=== PATIENT | female | born 1975 | race Caucasian/White ===

== ENCOUNTER → 2020-07-21 | Outpatient (CLI) | payer OTHER ==
[~2020-07-21] MED LIST: GADOTERATE 10 MMOL/20 ML VIAL ONE
== END | disposition home or self-care (01) ==
LOC: RAD 14:26
PROVIDERS: ATTEND Registered Nurse
DX: H90.5 Unspecified sensorineural hearing loss (principal)
CPT/HCPCS: 70553; A9575

== ENCOUNTER 2020-08-29 11:51 | Emergency (ER) | payer OTHER ==
[~2020-08-29] VITALS: Ht 165.1 cm; Wt 97.7 kg
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
[2020-08-29] MEDS ORDERED: MORPHINE SULFATE 4 MG/ML, 1ML ONE (12:18)
[2020-08-29] MEDS ORDERED: ONDANSETRON 2MG/ML, 2ML ONE ×3 (12:18→17:02)
[2020-08-29] MEDS ORDERED: ONDANSETRON 2MG/ML, 2ML IVPush ONE ×3 (12:30→17:30)
[2020-08-29] MEDS ORDERED: SODIUM CHLORIDE FLUSH 10ML SYR IVF ONE (12:30)
[2020-08-29] MEDS ORDERED: MORPHINE SULFATE 4 MG/ML, 1ML IVPush PRN (12:30)
[2020-08-29 12:40] LABS: BASOPHILS % (AUTO) 0 % (0-1); EOSINOPHILS % (AUTO) 0 % (1-7); LYMPHOCYTES % (AUTO) 5 % (22-44); MEAN CORPUSCULAR HGB CONC 34.4 g/dL (32.4-35.8); MEAN PLATELET VOLUME 9.4 fL (7.4-10.4); MONOCYTES % (AUTO) 6 % (2-9); NEUTROPHILS % (AUTO) 88 % (42-75); PLATELET COUNT 175 x10^3/uL (130-400); RED BLOOD COUNT 4.74 x10^6/uL (3.82-5.3); RED CELL DISTRIBUTION WIDTH 13.5 % (9.6-15.2)
[2020-08-29 12:46] LABS: MICROSCOPIC INDICATED
[2020-08-29 12:48] LABS: ALBUMIN 3.3 g/dL (3.4-5.0); ANION GAP 4 mmol/L (5-15); CALCIUM 8.4 mg/dL (8.5-10.1); CHLORIDE 109 mmol/L (98-107)
[2020-08-29 12:54] LABS: ALANINE AMINOTRANSFERASE 28 U/L (12-78); ALKALINE PHOSPHATASE 70 U/L (45-117); BILIRUBIN,TOTAL 0.6 mg/dL (0.2-1.0); CREATININE 0.65 mg/dL (0.55-1.02); TOTAL PROTEIN 6.9 g/dL (6.4-8.2)
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
[2020-08-29 13:14] LABS: MD SCAN
[2020-08-29] MEDS ORDERED: KETOROLAC 30 MG/1 ML IVPush ONE (13:30)
[2020-08-29] MEDS ORDERED: MECLIZINE CHEWABLE 25 MG TAB ONE (13:57)
[2020-08-29] MEDS ORDERED: ONDANSETRON ODT 4 MG ONE (13:57)
[2020-08-29] MEDS ORDERED: KETOROLAC 30 MG/1 ML ONE (13:57)
[2020-08-29] MEDS ORDERED: MECLIZINE CHEWABLE 25 MG TAB PO ONE (14:00)
--- NOTE | 2020-08-29 14:27 | NUR ---
PT VOMITING IN ROOM, MD NOTIFIED. PT MEDICATED AND IS NOW FEELING BETTER. AT BEDSIDE.
[2020-08-29] MEDS ORDERED: SODIUM CHLORIDE 0.9% 1,000ML IVBOLUS ONE (14:30)
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
[2020-08-29] MEDS ORDERED: DIAZEPAM 5 MG/ML, 2ML ONE (16:11)
[2020-08-29] MEDS ORDERED: DIAZEPAM 5 MG/ML, 2ML IV ONE (16:30)
[2020-08-29 17:47] VITALS: BP 124/74
== END 2020-08-29 17:49 | disposition home or self-care (01) ==
LOC: ED 14:50
DX: R10.32 Left lower quadrant pain (principal); R10.12 Left upper quadrant pain; K59.00 Constipation, unspecified; R11.0 Nausea; M25.511 Pain in right shoulder; R21 Rash and other nonspecific skin eruption; E03.9 Hypothyroidism, unspecified
CPT/HCPCS: 36415; 74176; 80053; 81001; 84702; 85025; 87086; 96361; 96374; 96375; 96376; 99285; J1885; J2270; J2405; J3360; J7030

== ENCOUNTER 2020-08-31 17:00 | Emergency (ER) | payer OTHER ==
[~2020-08-31] VITALS: Ht 165.1 cm; Wt 143.5 kg
[2020-08-31 17:40] VITALS: BP 141/81
[2020-08-31] MEDS ORDERED: SODIUM CHLORIDE FLUSH 10ML SYR IVF ONE (18:00)
[2020-08-31 18:23] LABS: ALANINE AMINOTRANSFERASE 40 U/L (12-78); ANION GAP 5 mmol/L (5-15); CALCIUM 8.8 mg/dL (8.5-10.1); CHLORIDE 110 mmol/L (98-107); CREATININE 0.75 mg/dL (0.55-1.02)
[2020-08-31 18:27] LABS: ALKALINE PHOSPHATASE 80 U/L (45-117); BASOPHILS % (AUTO) 1 % (0-1); BILIRUBIN,TOTAL 0.4 mg/dL (0.2-1.0); EOSINOPHILS % (AUTO) 1 % (1-7); LYMPHOCYTES % (AUTO) 19 % (22-44); MEAN CORPUSCULAR HEMOGLOBIN 30.6 pg (27.0-34.8); MEAN CORPUSCULAR HGB CONC 34.1 g/dL (32.4-35.8); MEAN PLATELET VOLUME 9.4 fL (7.4-10.4); MONOCYTES % (AUTO) 8 % (2-9); NEUTROPHILS % (AUTO) 72 % (42-75); PLATELET COUNT 203 x10^3/uL (130-400); RED BLOOD COUNT 4.52 x10^6/uL (3.82-5.3); RED CELL DISTRIBUTION WIDTH 13.6 % (9.6-15.2); TOTAL PROTEIN 6.8 g/dL (6.4-8.2)
[2020-08-31 18:28] LABS: MD NO
--- NOTE | 2020-08-31 19:15 | NUR ---
CALLED IN THE LOBBY, NO ANSWER.
--- NOTE | 2020-08-31 19:48 | NUR ---
2ND CALL. NO ANSWER.
--- NOTE | 2020-08-31 20:15 | NUR ---
NO ANSWER. PATIENT NOT IN THE LOBBY. LWBS
== END 2020-08-31 20:17 | disposition left against medical advice (07) ==
LOC: ED 17:30
DX: L02.31 Cutaneous abscess of buttock (principal); R50.9 Fever, unspecified; R11.2 Nausea with vomiting, unspecified
CPT/HCPCS: 36415; 80053; 84703; 85025; 99283

== ENCOUNTER 2020-10-28 07:37 | Outpatient (CLI) | payer OTHER ==
[2020-10-28] MEDS ORDERED: MONT10TA6 PO (09:27)
[2020-10-28] MEDS ORDERED: TOPI100T8 PO (09:27)
[2020-10-28] MEDS ORDERED: [UNRECOGNIZED DRUG - OTHER] PO (09:27)
[2020-10-28] MEDS ORDERED: CYCL5TAB PO (09:27)
[2020-10-28] MEDS ORDERED: CETI10CA PO (09:27)
[2020-10-28] MEDS ORDERED: SCOP1PAT13 TD (09:27)
[2020-10-28] MEDS ORDERED: [UNRECOGNIZED DRUG - OTHER] PO (09:27)
[2020-10-28] MEDS ORDERED: ZOLM5TAB8 PO (09:27)
[2020-10-28] MEDS ORDERED: LEVO100T PO (09:27)
[2020-11-02] MEDS ORDERED: HYDR-3565 PO (08:32)
== END 2020-10-28 23:59 | disposition home or self-care (01) ==
LOC: STAR 07:37
PROVIDERS: ATTEND Surgery
DX: Z20.822 Contact with and (suspected) exposure to COVID-19 (principal)
CPT/HCPCS: U0003